=== PATIENT | female | born 1935 | race Caucasian/White ===

== ENCOUNTER 2016-10-22 10:09 | Emergency (ER) | payer MEDICARE, OTHER ==
[2016-10-22 12:02] VITALS: BP 122/73
--- NOTE | 2016-10-22 15:07 | UC ---
Asad Boone Anna, scribed for Elsy Vincent MD on 10/22/16 at 1239 . General HPI - HPI Summary HPI Summary: Patient is an 80 y/o female coming [place] [facility] [place] with chest discomfort that began five days ago. The discomfort is described as a tightness that does not radiate to her back. She has felt nauseous and as if there were hyperactive movement in her abdomen. She experienced one episode of emesis five days ago. Her history is significant for dysphagia, which she has had for more than ten years and for which she has had some dilations. Denies fever, rash, melena, hematochezia, constipation, change in BM, diarrhea, changes in urination. Denies abd surgery, history of diverticulitis. She has tried taking Lexis [place] , which alleviates the symptoms for a few hours. She had shingles across her stomach a few years ago but says her current symptoms feel more internal than the shingles did. She called her PCP, Dr. Wyatt, yesterday, who recommended she come in. She has a standing appointment with Dr. Wyatt in two weeks. She does not have pets at home. She takes the stairs at home but has not noticed any difficulties with the stairs. She has been eating normally and chewing thoroughly. Her last colonoscopy was several years ago. - History of Current Complaint Chief Complaint: UCGeneralIllness Stated Complaint: CHILLS NAUSEA Hx Obtained From: Patient, Family/Employment Advisor - Accompanied by daughter Onset/Duration: Lasting Days, Still Present Onset Severity: Moderate Current Severity: Moderate Associated Signs & Symptoms: Positive: Chest Pain, Nausea, Trauma. Negative: Diarrhea, Dysuria, Fever - Allergy/Home Medications Allergies/Adverse Reactions: Allergies Allergy/AdvReac Type Severity Reaction Status Date / Time Clindamycin Allergy Altered Verified 12/08/15 10:35 Mental Status Sulfa Antibiotics Allergy Unknown Verified 12/08/15 10:35 Reaction Details Home Medications: Home Medications Aspirin [Aspirin Adult Low Strengt] 10/22/16 [History] Bismuth Subsalicylate [Pepto Bismol] 10/22/16 [History] Calcium Carbonate-Simethicone [Lexis-[place] Heartburn+Ga 750-80 mg] 10/22/16 [ History] PMH/Surg Hx/FS Hx/Imm Hx - Additional Past Medical History Additional PMH: Hx dysphagia Endocrine History Of: Reports: Thyroid Disease Denies: Diabetes Cardiovascular History Of: Denies: Hypertension, Pacemaker/ICD Respiratory History Of: Reports: Bronchitis Denies: Pulmonary Embolism GI/ History Of: Denies: Renal Disease - Surgical History Surgical History: Yes Surgery Procedure, Year, and Place: SKIN CANCER REMOVED SURGERY FOR HEMATOMA- [facility]-. KNEE SURGERY-RIGHT BILATERAL CATARACTS REMOVED-[facility] DENTAL IMPLANTS. DILATIONS FOR DYSPHAGIA EXTERNAL FIXATOR- RIGHT WRIST-[facility] - Family History Known Family History: Positive: Other - Hx of prostate and colon CA in brothers , all still living Negative: Hypertension, Diabetes - Social History Occupation: Retired Lives: With Family Alcohol Use: Daily Alcohol Amount: glass of wine with supper Substance Use Type: None Smoking Status (MU): Former Smoker Type: Cigarettes Amount Used/How Often: 6 CIGS PER DAY Have You Smoked in the Last Year: No When Did the Patient Quit Smoking/Using Tobacco: 30 yrs ago Review of Systems Constitutional: Negative Skin: Negative Eyes: Negative ENT: Negative Respiratory: Negative Cardiovascular: Chest Pain - See HPI Gastrointestinal: Vomiting, Other - Nausea and abdominal movement. See HPI. Genitourinary: Negative Motor: Negative Neurovascular: Negative Musculoskeletal: Negative Neurological: Negative Psychological: Negative All Other Systems Reviewed And Are Negative: Yes Physical Exam Triage Information Reviewed: Yes Appearance: Well-Nourished Vital Signs: Initial Vital Signs Temp 98.9 F 10/22/16 11:53 Pulse 70 10/22/16 11:53 Resp 18 10/22/16 11:53 BP 122/73 10/22/16 11:53 Pulse Ox 97 10/22/16 11:53 Vital Signs Reviewed: Yes Eye Exam: Normal ENT Exam: Normal Neck exam: Normal, Other - No adenopathy appreciated Respiratory Exam: Normal Respiratory: Positive: Chest non-tender, Lungs clear, Normal breath sounds, No respiratory distress, No accessory muscle use Cardiovascular Exam: Normal Cardiovascular: Positive: RRR, No Murmur, Pulses Normal, Brisk Capillary Refill Abdominal Exam: Other - Tender at LLQ. No rebound. No guarding. No pulsatile mass. Abdomen Description: Positive: No Organomegaly, Soft Bowel Sounds: Positive: Present Musculoskeletal Exam: Normal Musculoskeletal: Positive: Strength Intact Neurological Exam: Normal - nonfocal, grossly intact Psychological Exam: Normal - Conversing easily and appropriately Skin Exam: Normal - No visible or reported rash Re-Evaluation - Re-Evaluation First Eval Re-Evaluation Time: 13:13 Comment: Discussed results of UA with patient and daughter. The patient will have blood drawn here and follow up with Dr. Wyatt. She is encouraged to follow up within 2 days. Course/Dx - Course Course Of Treatment: She has a standing appointment with Dr. Wyatt in two weeks. D/w Dr. Wyatt, he will kindly see her in the office in the next couple days. Labs ordered - urine cx (Dip noted). cbc, cmp, amylase / lipase, crp, sed rate. She will go to the ED for any worse or new problems / pain. Questions answered to the best of my ability. No new problems in CCC. Considered below differential diagnoses. - Differential Dx - Multi-Symptom Provider Diagnoses: Abdominal pain - Physician Notifications Discussed Patient Care With: Dr. Wyatt (PCP) at 1324. He will see the patient for follow up. Discharge - Discharge Plan Condition: Stable Disposition: HOME Patient Education Materials: Acute Abdominal Pain (ED) Referrals: Colt Wyatt MD [Primary Care Provider] - Additional Instructions: Follow up with Dr. Wyatt - in the next 2 days if possible. Meanwhile, go to the Emergency Department for worse or new problems. Blood work has been ordered (see attached). Urine culture in the lab. The documentation as recorded by the Asad luu Anna accurately reflects the service I personally performed and the decisions made by me, Elsy Vincent MD.
[2016-10-22 16:44] LABS: Hematocrit 45 % (35-47); Mean Corpuscular HGB Conc 34 g/dl (31-36); Mean Corpuscular Hemoglobin 32 pg (27-31); Mean Corpuscular Volume 94 fL (80-97); Mean Platelet Volume 9 um3 (7.4-10.4); Red Blood Count 4.72 10^6/ul (4.0-5.4); Red Cell Distribution Width 13 % (10.5-15); White Blood Count 6.6 10^3/ul (3.5-10.8)
[2016-10-22 17:06] LABS: ALT 13 U/L (7-52); AST 18 U/L (13-39); Albumin 4.2 g/dL (3.2-5.2); Alkaline Phosphatase 58 U/L (34-104); Amylase 61 U/L (29-103); Anion Gap 5 mmol/L (2-11); BUN/Creatinine Ratio 23.1 (8-20); Blood Urea Nitrogen 18 mg/dL (6-24); C Reactive Protein < 1.00 mg/L (< 5.00); CO2 Carbon Dioxide 29 mmol/L (22-32); Calcium 9.1 mg/dL (8.6-10.3); Chloride 104 mmol/L (101-111); EGFR African American 90.9 (>60); EGFR Non-African American 70.7 (>60); Globulin 2.3 g/dL (2-4); Glucose 91 mg/dL (70-100); Lipase 47 U/L (11.0-82.0); Potassium 4.4 mmol/L (3.5-5.0); Sodium 138 mmol/L (133-145); Total Protein 6.5 g/dL (6.4-8.9)
[2016-10-22 17:47] LABS: Erythrocyte Sed Rate 9 mm/Hr (0-40)
== END 2016-10-22 13:30 | disposition home or self-care (01) ==
LOC: UCEAST 10:09
DX: R10.32 Left lower quadrant pain (principal); R11.0 Nausea; R07.89 Other chest pain; Z88.1 Allergy status to other antibiotic agents; Z88.2 Allergy status to sulfonamides; Z98.42 Cataract extraction status, left eye; Z98.41 Cataract extraction status, right eye; Z87.891 Personal history of nicotine dependence
CPT/HCPCS: 36415; 80053; 81003; 82150; 83690; 85025; 85652; 86140; 87077; 87086; 87186; 99212; G0463

== ENCOUNTER 2021-03-18 16:50 | Inpatient (IN) ==
[2021-03-18] MEDS ORDERED: Lidocaine PATCH 5% PATCH TRANSDERM ONE (17:14)
[2021-03-18 20:12] LABS: ABS Lymphocytes 0.7 10^3/ul (1.0-4.8); ABS Monocytes 0.7 10^3/ul (0-0.8); ABS Neutrophils 10.9 10^3/ul (1.5-7.7); Hematocrit 44 % (35-47); Hemoglobin 15.2 g/dL (12.0-16.0); Lymphocyte % 5.7 %; Mean Corpuscular HGB Conc 34 g/dL (31-36); Mean Corpuscular Hemoglobin 32 pg (27-31); Mean Corpuscular Volume 94 fL (80-97); Mean Platelet Volume 8.3 fL (7.4-10.4); Platelet Count 216 10^3/uL (150-450); Red Blood Count 4.71 10^6 /uL (3.70-4.87); Red Cell Distribution Width 13 % (10-15); White Blood Count 12.4 10^3/uL (3.5-10.8)
[2021-03-18 20:32] LABS: Activated Partial Thrombo Time 24.7 seconds (26.0-38.0); Albumin 4.2 g/dL (3.2-5.2); Albumin/Globulin Ratio 1.6 (1-3); Calcium 9.1 mg/dL (8.6-10.3); EGFR African American 62.7 (>60); EGFR Non-African American 51.8 (>60); Globulin 2.6 g/dL (2-4); INR 1.01 (0.86-1.15); Potassium 3.9 mmol/L (3.5-5.0); Total Bilirubin 0.6 mg/dL (0.2-1.0); Total Protein 6.8 g/dL (6.4-8.9)
[2021-03-18 20:35] LABS: Troponin I 0.01 ng/mL (<0.03)
[2021-03-18] MEDS ORDERED: NS 0.9% 1000 ml BAG 1,000 ML IV ONE (20:46)
[2021-03-18 21:13] LABS: Urine Appearance Cloudy; Urine Bacteria Absent (Absent); Urine Bilirubin Negative (Negative); Urine Blood Negative (Negative); Urine Color Yellow; Urine Glucose Negative (Negative); Urine Ketones Trace (Negative); Urine Nitrite Negative (Negative); Urine Protein Negative (Negative); Urine Red Blood Cell Absent (Absent); Urine Specific Gravity 1.013 (1.002-1.030); Urine Urobilinogen Negative (Negative); Urine White Blood Cell Absent (Absent)
[2021-03-19] MEDS ORDERED: Heparin 5000 UNITS/ML 1 mL VIAL SUBCUT ONE (01:04)
[2021-03-19] MEDS: Lidocaine Patch REMOVE PATCH PATCH OFF SCH ×2 (05:54→21:04)
[2021-03-19 06:02] LABS: Hematocrit 41 % (35-47); Hemoglobin 13.8 g/dL (12.0-16.0); Mean Corpuscular HGB Conc 34 g/dL (31-36); Mean Corpuscular Hemoglobin 32 pg (27-31); Mean Corpuscular Volume 95 fL (80-97); Mean Platelet Volume 7.9 fL (7.4-10.4); Platelet Count 181 10^3/uL (150-450); Red Blood Count 4.34 10^6 /uL (3.70-4.87); Red Cell Distribution Width 14 % (10-15); White Blood Count 11.9 10^3/uL (3.5-10.8)
[2021-03-19 06:13] LABS: Activated Partial Thrombo Time 27.1 seconds (26.0-38.0); INR 1.06 (0.86-1.15)
[2021-03-19 06:20] LABS: EGFR African American 80.9 (>60); EGFR Non-African American 66.9 (>60); Potassium 3.6 mmol/L (3.5-5.0)
[2021-03-19] MEDS ORDERED: ceFAZolin 2 GM in NS PREMIX 2 GM/100 ML BAG IVPB ONE (12:28)
[2021-03-19] MEDS ORDERED: Ondansetron 4 mg VIAL 2 MG/ML 2 ml VIAL ONE (12:34)
[2021-03-19] MEDS ORDERED: Propofol 10 MG/ML 20 ML BTL ONE (12:34)
[2021-03-19] MEDS ORDERED: Lidocaine 2% PF 5 ML VIAL ONE (12:34)
[2021-03-19] MEDS ORDERED: fentaNYL 100 mcg/2 ml 50 MCG/ML VIAL ONE ×2 (12:34→15:54)
[2021-03-19] MEDS ORDERED: Dexamethasone IV 4 MG/ML VIAL 1 ml VIAL ONE (12:34)
[2021-03-19] MEDS ORDERED: Bupivacaine 0.25% EPI 200,000 30 ML SDV ONE ×2 (12:44→14:36)
[2021-03-19] MEDS ORDERED: Buffered Lidocaine 1% SYRIN 1 ml INTRADERM ONE (12:58)
[2021-03-19] MEDS ORDERED: Sodium Citrate/Citric Acid LIQ 15 ML UDC PO ONE (12:58)
[2021-03-19] MEDS ORDERED: ceFAZolin 2 GM in NS 100 ml - ONCE (Pharmacy Admix) IVPB ONE (13:00)
[2021-03-19] MEDS ORDERED: Hydrocortisone INJ 250 MG VIAL IV ONE (13:00)
[2021-03-19] MEDS ORDERED: Hydrocortisone INJ 100 MG/2ML 2 ML VIAL ONE (13:00)
[2021-03-19] MEDS ORDERED: Ketamine HCL 50 mg/ml 10 ml VIAL (500 MG) ONE (13:25)
[2021-03-19] MEDS ORDERED: HYDROmorphone 1 MG/1 ML SYRINGE IV PRN (15:51)
[2021-03-19] MEDS ORDERED: Naloxone 0.4 mg VIAL 0.4 mg/ml 1 ml VIAL IV PRN (15:51)
[2021-03-19] MEDS ORDERED: fentaNYL 100 mcg/2 ml 50 MCG/ML VIAL IV PRN (15:51)
[2021-03-19] MEDS ORDERED: Ondansetron 4 mg VIAL 2 MG/ML 2 ml VIAL IV PRN (15:51)
[2021-03-19] MEDS ORDERED: Metoclopramide 5 MG/ML VIAL (10 mg) IV PRN (15:51)
[2021-03-19] MEDS: Lactated Ringers 1000 ml BAG 1,000 ML IV SCH (18:21)
[2021-03-19] MEDS: ceFAZolin 1 GM X 3 DOSES POST-OP Q8H (AddVan) IVPB SCH (21:00)
[2021-03-20] MEDS: ceFAZolin 1 GM X 3 DOSES POST-OP Q8H (AddVan) IVPB SCH ×2 (05:18→13:28)
[2021-03-20] MEDS: Lactated Ringers 1000 ml BAG 1,000 ML IV SCH ×2 (05:41→16:07)
[2021-03-20] MEDS ORDERED: Haloperidol 5 mg/ml SDV IV/IM 5 MG/ML AMP IV SLOW PU ONE (05:46)
[2021-03-20 07:18] LABS: ABS Lymphocytes 0.5 10^3/ul (1.0-4.8); ABS Monocytes 0.9 10^3/ul (0-0.8); ABS Neutrophils 8.6 10^3/ul (1.5-7.7); Eosinophil % 0.1 %; Hematocrit 33 % (35-47); Hemoglobin 11.3 g/dL (12.0-16.0); Lymphocyte % 5.3 %; Mean Corpuscular HGB Conc 35 g/dL (31-36); Mean Corpuscular Hemoglobin 33 pg (27-31); Mean Corpuscular Volume 95 fL (80-97); Mean Platelet Volume 8.4 fL (7.4-10.4); Platelet Count 133 10^3/uL (150-450); Red Blood Count 3.46 10^6 /uL (3.70-4.87); Red Cell Distribution Width 14 % (10-15)
[2021-03-20 07:35] LABS: EGFR African American 77.6 (>60); EGFR Non-African American 64.1 (>60); Potassium 3.4 mmol/L (3.5-5.0)
[2021-03-20] MEDS ORDERED: Potassium Chlor 20 meq TAB.ER PO ONE (09:41)
[2021-03-20] MEDS ORDERED: Senna TAB 8.6 mg TAB PO PRN (12:46)
[2021-03-20] MEDS ORDERED: Polyethylene Glycol 3350 17 GM PACKET PO PRN (12:46)
[2021-03-20] MEDS: Enoxaparin 40 MG/0.4 ML SYR SUBCUT SCH (13:28)
[2021-03-20 15:39] LABS: ABS Lymphocytes 0.6 10^3/ul (1.0-4.8); ABS Monocytes 0.7 10^3/ul (0-0.8); ABS Neutrophils 7.7 10^3/ul (1.5-7.7); Eosinophil % 0.1 %; Hematocrit 32 % (35-47); Hemoglobin 10.7 g/dL (12.0-16.0); Lymphocyte % 6.6 %; Mean Corpuscular HGB Conc 33 g/dL (31-36); Mean Corpuscular Hemoglobin 32 pg (27-31); Mean Corpuscular Volume 96 fL (80-97); Mean Platelet Volume 8.3 fL (7.4-10.4); Platelet Count 137 10^3/uL (150-450); Red Blood Count 3.34 10^6 /uL (3.70-4.87); Red Cell Distribution Width 14 % (10-15)
[2021-03-20] MEDS: Lidocaine Patch REMOVE PATCH PATCH OFF SCH (22:06)
[2021-03-21 06:16] LABS: Hematocrit 31 % (35-47); Hemoglobin 10.3 g/dL (12.0-16.0); Mean Platelet Volume 8.1 fL (7.4-10.4); Platelet Count 138 10^3/uL (150-450)
[2021-03-21] MEDS ORDERED: Acetaminophen IV 1 GM/100ML 100 ML IV PRN (08:20)
[2021-03-21] MEDS ORDERED: Lactated Ringers 1000 ml BAG 1,000 ML IV SCH (09:00)
[2021-03-21] MEDS ORDERED: Midazolam 10 mg/10 ml VIAL 1 mg/ml 10 ml VIAL (10 mg) ONE (13:09)
[2021-03-21] MEDS ORDERED: fentaNYL 100 mcg/2 ml 50 MCG/ML VIAL ONE (13:09)
[2021-03-21] MEDS: Enoxaparin 40 MG/0.4 ML SYR SUBCUT SCH (14:04)
[2021-03-21] MEDS ORDERED: Hydrocortisone INJ 100 MG/2ML 2 ML VIAL IV SCH (18:00)
[2021-03-21] MEDS: Lidocaine Patch REMOVE PATCH PATCH OFF SCH (23:05)
[2021-03-22] MEDS ORDERED: Hydrocortisone INJ 100 MG/2ML 2 ML VIAL IV SCH
[2021-03-22 07:05] LABS: Hematocrit 27 % (35-47); Hemoglobin 9.3 g/dL (12.0-16.0); Mean Corpuscular HGB Conc 35 g/dL (31-36); Mean Corpuscular Hemoglobin 32 pg (27-31); Mean Corpuscular Volume 94 fL (80-97); Mean Platelet Volume 8.3 fL (7.4-10.4); Platelet Count 150 10^3/uL (150-450); Red Blood Count 2.88 10^6 /uL (3.70-4.87); Red Cell Distribution Width 14 % (10-15); White Blood Count 7.1 10^3/uL (3.5-10.8)
[2021-03-22 07:17] LABS: Calcium 7.3 mg/dL (8.6-10.3); EGFR African American 100.7 (>60); EGFR Non-African American 83.3 (>60); Potassium 3.3 mmol/L (3.5-5.0)
[2021-03-22] MEDS ORDERED: Potassium Chloride LIQUID 20 MEQ/15 ML LIQUID PO ONE (08:06)
[2021-03-22] MEDS ORDERED: KCL 20 MEQ/100 ML IVPREMIX 20 MEQ/100 ML BAG IV ONE (08:50)
[2021-03-22] MEDS ORDERED: Lactated Ringers 1000 ml BAG 1,000 ML IV SCH (09:00)
[2021-03-22] MEDS: Enoxaparin 40 MG/0.4 ML SYR SUBCUT SCH (12:17)
[2021-03-22] MEDS ORDERED: Iohexol 350 (CONTRAST) 500 ML MDV IV ONE (19:22)
[2021-03-22] MEDS: Lidocaine Patch REMOVE PATCH PATCH OFF SCH (23:57)
[2021-03-23 07:42] VITALS: BP 116/64
[2021-03-23 08:27] LABS: Hematocrit 27 % (35-47); Hemoglobin 9.2 g/dL (12.0-16.0); Mean Corpuscular HGB Conc 34 g/dL (31-36); Mean Corpuscular Hemoglobin 32 pg (27-31); Mean Corpuscular Volume 94 fL (80-97); Mean Platelet Volume 8.2 fL (7.4-10.4); Platelet Count 169 10^3/uL (150-450); Red Blood Count 2.87 10^6 /uL (3.70-4.87); Red Cell Distribution Width 13 % (10-15); White Blood Count 6.6 10^3/uL (3.5-10.8)
[2021-03-23 08:44] LABS: ABS Eosinophils 0.1 10^3/ul (0-0.6); ABS Lymphocytes 0.7 10^3/ul (1.0-4.8); ABS Monocytes 0.6 10^3/ul (0-0.8); ABS Neutrophils 5.1 10^3/ul (1.5-7.7); Eosinophil % 2.1 %; Lymphocyte % 11.1 %
[2021-03-23 08:48] LABS: Calcium 7.4 mg/dL (8.6-10.3); EGFR African American 106.2 (>60); EGFR Non-African American 87.8 (>60); Potassium 3.7 mmol/L (3.5-5.0)
== END 2021-03-23 08:00 | DRG 482 ==
LOC: ED 16:50 → SSU 03-19 00:27 → SUATTDRO 03-19 00:27 → SSU 03-20 08:30
PROVIDERS: ADMIT Internal Medicine; ATTEND Internal Medicine

== ENCOUNTER 2021-03-23 07:24 | Inpatient (IN) ==
[2021-03-23] MEDS ORDERED: Magnesium Hydroxide LIQ 30 ML UDC PO PRN (11:49)
[2021-03-23] MEDS ORDERED: Senna TAB 8.6 mg TAB PO PRN (11:49)
[2021-03-23] MEDS: Enoxaparin 40 MG/0.4 ML SYR SUBCUT SCH (12:38)
[2021-03-24] MEDS ORDERED: Fluticasone NASAL SPRAY 50MCG 16 gm SPRAY BTL BOTH NARES SCH (09:00)
[2021-03-24] MEDS: Enoxaparin 40 MG/0.4 ML SYR SUBCUT SCH (10:57)
[2021-03-24] MEDS: SYSTANE BOTH EYES SCH (13:57)
[2021-03-25] MEDS: FLUTICASONE 50 MCG BOTH NARES SCH (10:11)
[2021-03-25] MEDS: Enoxaparin 40 MG/0.4 ML SYR SUBCUT SCH (10:11)
[2021-03-25] MEDS: SYSTANE BOTH EYES SCH (10:11)
[2021-03-25] MEDS: HYDROcodone/ACETAMIN 5/325 mg TAB PO PRN (22:30)
[2021-03-26] MEDS: HYDROcodone/ACETAMIN 5/325 mg TAB PO PRN (06:31)
[2021-03-26 08:21] LABS: Hematocrit 28 % (35-47); Hemoglobin 9.4 g/dL (12.0-16.0); Mean Corpuscular HGB Conc 34 g/dL (31-36); Mean Corpuscular Hemoglobin 32 pg (27-31); Mean Corpuscular Volume 94 fL (80-97); Mean Platelet Volume 8.6 fL (7.4-10.4); Platelet Count 240 10^3/uL (150-450); Red Blood Count 2.95 10^6 /uL (3.70-4.87); Red Cell Distribution Width 14 % (10-15); White Blood Count 7.6 10^3/uL (3.5-10.8)
[2021-03-26 08:31] LABS: ABS Eosinophils 0.2 10^3/ul (0-0.6); ABS Lymphocytes 1.1 10^3/ul (1.0-4.8); ABS Monocytes 0.7 10^3/ul (0-0.8); ABS Neutrophils 5.6 10^3/ul (1.5-7.7); Eosinophil % 2.6 %
[2021-03-26 08:36] LABS: Albumin/Globulin Ratio 1.4 (1-3); Calcium 7.5 mg/dL (8.6-10.3); EGFR African American 94.2 (>60); EGFR Non-African American 77.9 (>60); Globulin 2.1 g/dL (2-4); Potassium 3.4 mmol/L (3.5-5.0); Total Bilirubin 0.8 mg/dL (0.2-1.0); Total Protein 5.1 g/dL (6.4-8.9)
[2021-03-26] MEDS: FLUTICASONE 50 MCG BOTH NARES SCH (08:42)
[2021-03-26] MEDS: SYSTANE BOTH EYES SCH (08:42)
[2021-03-26 09:04] LABS: Polychromasia 1+
[2021-03-26] MEDS: Enoxaparin 40 MG/0.4 ML SYR SUBCUT SCH (10:32)
[2021-03-27] MEDS: FLUTICASONE 50 MCG BOTH NARES SCH (13:06)
[2021-03-27] MEDS: Enoxaparin 40 MG/0.4 ML SYR SUBCUT SCH (13:06)
[2021-03-27] MEDS: SYSTANE BOTH EYES SCH (13:06)
[2021-03-27] MEDS: HYDROcodone/ACETAMIN 5/325 mg TAB PO PRN (21:58)
[2021-03-28] MEDS: Enoxaparin 40 MG/0.4 ML SYR SUBCUT SCH (09:10)
[2021-03-28] MEDS: SYSTANE BOTH EYES SCH (09:12)
[2021-03-28] MEDS: FLUTICASONE 50 MCG BOTH NARES SCH (09:12)
[2021-03-29] MEDS: Enoxaparin 40 MG/0.4 ML SYR SUBCUT SCH (11:58)
[2021-03-29] MEDS: FLUTICASONE 50 MCG BOTH NARES SCH (12:09)
[2021-03-29] MEDS: SYSTANE BOTH EYES SCH (12:09)
[2021-03-30] MEDS: SYSTANE BOTH EYES SCH (08:59)
[2021-03-30] MEDS: Potassium Chloride LIQUID 20 MEQ/15 ML LIQUID PO SCH (08:59)
[2021-03-30] MEDS: FLUTICASONE 50 MCG BOTH NARES SCH (09:00)
[2021-03-30] MEDS: Enoxaparin 40 MG/0.4 ML SYR SUBCUT SCH (09:03)
[2021-03-30] MEDS: Senna TAB 8.6 mg TAB PO SCH (20:55)
[2021-03-31] MEDS: SYSTANE BOTH EYES SCH (08:08)
[2021-03-31] MEDS: Potassium Chloride LIQUID 20 MEQ/15 ML LIQUID PO SCH (08:08)
[2021-03-31] MEDS: FLUTICASONE 50 MCG BOTH NARES SCH (08:08)
[2021-03-31] MEDS: Enoxaparin 40 MG/0.4 ML SYR SUBCUT SCH (08:10)
[2021-03-31] MEDS: Senna TAB 8.6 mg TAB PO SCH (20:08)
[2021-04-01] MEDS: SYSTANE BOTH EYES SCH (09:28)
[2021-04-01] MEDS: Potassium Chloride LIQUID 20 MEQ/15 ML LIQUID PO SCH (09:29)
[2021-04-01] MEDS: Enoxaparin 40 MG/0.4 ML SYR SUBCUT SCH (09:29)
[2021-04-01] MEDS: FLUTICASONE 50 MCG BOTH NARES SCH (09:29)
[2021-04-01] MEDS ORDERED: Benzocaine/Menthol LOZ PO PRN (10:39)
[2021-04-01] MEDS: Senna TAB 8.6 mg TAB PO SCH (22:37)
[2021-04-02 06:37] LABS: ABS Eosinophils 0.2 10^3/ul (0-0.6); ABS Lymphocytes 1.4 10^3/ul (1.0-4.8); ABS Monocytes 0.6 10^3/ul (0-0.8); ABS Neutrophils 4.6 10^3/ul (1.5-7.7); Eosinophil % 2.3 %; Hematocrit 31 % (35-47); Hemoglobin 10.3 g/dL (12.0-16.0); Lymphocyte % 20.5 %; Mean Corpuscular HGB Conc 33 g/dL (31-36); Mean Corpuscular Hemoglobin 32 pg (27-31); Mean Corpuscular Volume 97 fL (80-97); Mean Platelet Volume 7.6 fL (7.4-10.4); Platelet Count 410 10^3/uL (150-450); Red Blood Count 3.22 10^6 /uL (3.70-4.87); Red Cell Distribution Width 15 % (10-15); White Blood Count 6.9 10^3/uL (3.5-10.8)
[2021-04-02 06:48] LABS: Albumin 3.3 g/dL (3.2-5.2); Albumin/Globulin Ratio 1.5 (1-3); Calcium 7.9 mg/dL (8.6-10.3); EGFR African American 79.8 (>60); EGFR Non-African American 65.9 (>60); Globulin 2.2 g/dL (2-4); Potassium 4.1 mmol/L (3.5-5.0); Total Bilirubin 0.6 mg/dL (0.2-1.0); Total Protein 5.5 g/dL (6.4-8.9)
[2021-04-02] MEDS: SYSTANE BOTH EYES SCH (10:09)
[2021-04-02] MEDS: FLUTICASONE 50 MCG BOTH NARES SCH (10:09)
[2021-04-02] MEDS: Enoxaparin 40 MG/0.4 ML SYR SUBCUT SCH (10:09)
[2021-04-02] MEDS: Potassium Chloride LIQUID 20 MEQ/15 ML LIQUID PO SCH (10:09)
[2021-04-02] MEDS: Senna TAB 8.6 mg TAB PO SCH (22:53)
[2021-04-02] MEDS: HYDROcodone/ACETAMIN 5/325 mg TAB PO PRN (23:25)
[2021-04-03 06:38] VITALS: BP 96/52
[2021-04-03] MEDS: FLUTICASONE 50 MCG BOTH NARES SCH (08:55)
[2021-04-03] MEDS: SYSTANE BOTH EYES SCH (08:56)
[2021-04-03] MEDS: Enoxaparin 40 MG/0.4 ML SYR SUBCUT SCH (13:46)
== END 2021-04-03 14:00 | disposition home or self-care (01) | DRG 561 ==
LOC: PMRU 09:11
PROVIDERS: ADMIT Physical Medicine & Rehabilitation; ATTEND Physical Medicine & Rehabilitation

== ENCOUNTER 2023-10-01 11:56 | Inpatient (IN) ==
[2023-10-01 12:38] LABS: ABS Basophils 0.1 10^3/uL (0.0-0.1); ABS Lymphocytes 0.7 10^3/uL (1.0-4.8); ABS Monocytes 1.1 10^3/uL (0.0-0.9); ABS Neutrophils 17.2 10^3/uL (1.5-7.6); Hematocrit 37.9 % (35-45); Hemoglobin 12.4 g/dL (11.5-14.3); Lymphocyte % 3.8 %; Mean Corpuscular Hemoglobin 29.8 pg (27-33); Mean Corpuscular Hgb Conc 32.8 g/dL (31-36); Mean Corpuscular Volume 90.8 fL (80-97); Platelet Count 413 10^3/uL (150-450); Red Blood Count 4.18 10^6/uL (3.63-4.92); Red Cell Distribution Width 13.7 % (12-17); White Blood Count 19.1 10^3/uL (3.8-11.8)
[2023-10-01] MEDS: Lactated Ringers 1000 ml BAG 1,000 ML IV ONE (12:55)
[2023-10-01 13:37] LABS: ALT 5 U/L (7-52); AST 11 U/L (13-39); Albumin 3.1 g/dL (3.2-5.2); Albumin/Globulin Ratio 0.9 (1-3); Alkaline Phosphatase 87 U/L (35-149); Anion Gap 8 mmol/L (2-16); Blood Urea Nitrogen 28 mg/dL (6-24); C Reactive Protein 203.08 mg/L (<8.01); CO2 Carbon Dioxide 30 mmol/L (22-32); Calcium 8.3 mg/dL (8.6-10.3); Chloride 102 mmol/L (101-111); Creatinine, Serum 0.95 mg/dL (0.51-0.95); Globulin 3.4 g/dL (2-4); Glucose 122 mg/dL (70-100); Potassium 4.5 mmol/L (3.5-5.0); Sodium 140 mmol/L (135-145); Total Bilirubin 0.5 mg/dL (0.2-1.0); Total Protein 6.5 g/dL (6.4-8.9); eGFR CKD-EPI 57.3 (>60)
[2023-10-01 13:41] LABS: HCG Pregnancy < 0.60 mIU/mL
[2023-10-01] MEDS: Azithromycin 500 mg/250 ml NS 500 MG/250 ML BAG IVPB ONE (14:18)
[2023-10-01] MEDS: cefTRIAXone 1 gm/50 mL D5W 1 GM/50 ML BAG IV SCH (14:18)
[2023-10-01] MEDS: Enoxaparin 30 MG/0.3 ML SYR SUBCUT SCH (17:12)
[2023-10-02 05:58] LABS: ABS Basophils 0.1 10^3/uL (0.0-0.1); ABS Lymphocytes 1.2 10^3/uL (1.0-4.8); ABS Monocytes 1.3 10^3/uL (0.0-0.9); ABS Neutrophils 18.1 10^3/uL (1.5-7.6); ABS Nucleated RBC 0.01 10^3/ul; Hematocrit 33.8 % (35-45); Hemoglobin 11.3 g/dL (11.5-14.3); Lymphocyte % 5.8 %; Mean Corpuscular Hemoglobin 30.3 pg (27-33); Mean Corpuscular Hgb Conc 33.5 g/dL (31-36); Mean Corpuscular Volume 90.3 fL (80-97); Mean Platelet Volume 8.4 fL (7.5-11.2); Nucleated Red Blood Cells % 0.1 %/100WBC (0.0-0.8); Platelet Count 379 10^3/uL (150-450); Red Blood Count 3.74 10^6/uL (3.63-4.92); White Blood Count 20.7 10^3/uL (3.8-11.8)
[2023-10-02 06:11] LABS: C Reactive Protein 269.41 mg/L (<8.01); Creatinine, Serum 0.74 mg/dL (0.51-0.95); Magnesium 2.1 mg/dL (1.9-2.7); eGFR CKD-EPI 77.3 (>60)
[2023-10-02] MEDS ORDERED: Atropine 1% (ORAL/SL) 15 ML BTL SL PRN (11:41)
[2023-10-02] MEDS ORDERED: Morphine ORAL CONCENTRATE 5 MG/0.25 ML ORAL.SYRIN PO PRN (11:41)
[2023-10-02] MEDS: methylPREDNISolone SOD SUCC 40 mg/ml 1 ml VIAL IV SCH (12:34)
[2023-10-02] MEDS: Azithromycin 500 mg/250 ml NS 500 MG/250 ML BAG IVPB SCH (16:00)
[2023-10-03 05:57] VITALS: BP 116/69
[2023-10-03] MEDS: Levothyroxine 100 MCG/5 ML VIAL IV SCH (05:58)
[2023-10-03] MEDS: cefTRIAXone 1 gm/50 mL D5W 1 GM/50 ML BAG IV SCH (09:40)
[2023-10-03] MEDS: Azithromycin 500 mg/250 ml NS 500 MG/250 ML BAG IVPB SCH (10:42)
== END 2023-10-03 11:50 | disposition hospice, inpatient (51) | DRG 177 ==
LOC: EDHOLD 11:56 → ED 11:56 → SUATTDRO 14:19 → SSU 18:47
PROVIDERS: ADMIT Student in an Organized Health Care Education/Training Program; ATTEND Student in an Organized Health Care Education/Training Program